=== PATIENT | female | born 1965 | race African-American/Black ===

== ENCOUNTER 2018-12-29 10:49 | Inpatient (IN) | payer OTHER ==
[2018-12-29] MEDS ORDERED: ACETAMINOPHEN 500 MG TABLET (FP) PO ONE (11:09)
[2018-12-29] MEDS ORDERED: morphine CARPU-JECT 4 MG/1 ML DISP.SYRIN IVPUSH ONE (11:13)
[2018-12-29] MEDS ORDERED: morphine SULFATE 4 MG/ML VIAL ONE ×2 (11:15→18:12)
[2018-12-29] MEDS ORDERED: ACETAMINOPHEN 325 MG TABLET (FP) ONE (11:16)
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
--- NOTE | 2018-12-29 12:57 | PDOC ---
Attending Attestation - Resident Resident Name: DrakeMartin - ED Attending Attestation I have performed the following: I have examined & evaluated the patient, The case was reviewed & discussed with the resident, I agree w/resident's findings & plan - HPI HPI: 12/29/18 12:58 53 YOF with h/o Alcohol dependence, mood disorder, PTSD presenting with left hip pain. Fell 1 week ago, ? left hip pain today after another stumble today, now unable to ambulate. Percocet for pain control normally, but has not taken recently.. sees pain specialist, due for appt visit next week.. 12/29/18 21:03 - Physicial Exam PE: 12/29/18 12:58 Agree with the resident's HPI and PE as documented in the electronic medical record. mild distress, tearful and crying in pain. no respiratory distress 2+ pulses throughout. CARTER x4, no focal neuro deficits. +left lateral hip TTP, normal symmetric extremities, no shortening. no deformities. No peripheral edema. normal color for ethnicity, WWP. 12/29/18 12:58 - Medical Decision Making 12/29/18 12:59 Vital Signs Temp Pulse Resp BP Pulse Ox 98.1 F 78 20 154/90 100 12/29/18 11:01 12/29/18 11:01 12/29/18 11:01 12/29/18 11:01 12/29/18 11:01 VS reviewed wnl DDX contusion, hematoma, hip fx, pelvic fx xray of hip and femur neg for acute pathology, normal alignment, no dislocation pelvic ct given persistent sx and left hip pain, r/o occult fx analgesia CT pelvis neg for fx or acute injuries. 12/29/18 14:17 still c/o pain. in left hip. given additional toradol, ketamine, IVF and percocet. reassess unable to ambulate yet, so pain control and reassess. however, despite meds above, unable to ambulate, unsafe for discharge. will admit obs for pain control, hip pain, PT eval and medical management. 12/29/18 21:04
[2018-12-29] MEDS ORDERED: KETAMINE HCL 500 MG/10 ML VIAL IV ONE (14:16)
[2018-12-29] MEDS ORDERED: LIDOCAINE 5% TOPICAL PATCH TP ONE (14:17)
[2018-12-29] MEDS ORDERED: KETOROLAC TROMETHAMINE 15 MG/ML VIAL IVPUSH ONE (14:17)
[2018-12-29] MEDS ORDERED: LACTATED RINGERS SOLUTION 1000 ML INFUS.BAG IV ONE (14:18)
[2018-12-29] MEDS ORDERED: LIDOCAINE 5% TOPICAL PATCH ONE (14:28)
[2018-12-29] MEDS ORDERED: KETOROLAC TROMETHAMINE 15 MG/ML VIAL ONE ×2 (14:28→18:03)
[2018-12-29] MEDS ORDERED: KETAMINE HCL 500 MG/10 ML VIAL ONE (14:29)
[2018-12-29 16:55] LABS: BASO % 0.6 % (0-2.0); EOS % 1.8 % (0-4.5); HEMATOCRIT 41.9 % (32.4-45.2); LYMPH % 47.2 % (8-40); MCH 29.4 pg (25.7-33.7); MCHC 33.3 g/dl (32.0-36.0); MEAN CELL VOLUME 88.4 fl (80-96); NEUT % 41.4 % (42.8-82.8); PLATELET COUNT 194 K/MM3 (134-434); RBC 4.74 M/mm3 (3.60-5.2); RDW 14.1 % (11.6-15.6); WHITE BLOOD COUNT 4.8 K/mm3 (4.0-10.0)
[2018-12-29 17:16] LABS: BLOOD UREA NITROGEN 15.2 mg/dL (7-18); CALCIUM 9.2 mg/dL (8.5-10.1); CREATININE 0.9 mg/dL (0.55-1.3); POTASSIUM 4.1 mmol/L (3.5-5.1)
[2018-12-29] MEDS ORDERED: oxyCODONE HCL 5 MG TABLET PO PRN (17:52)
[2018-12-29] MEDS ORDERED: KETOROLAC TROMETHAMINE 30 MG/1 ML VIAL IM PRN (17:52)
[2018-12-29] MEDS ORDERED: morphine SULFATE 4 MG/ML VIAL IVPUSH PRN (17:53)
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
[2018-12-29] MEDS: NICOTINE 7 MG/24 HOURS TOPICAL PATCH TD SCH (19:07)
[2018-12-29] MEDS: HYDROmorphone HCl 2 MG/ML VIAL IVPB PRN (20:28)
[2018-12-29] MEDS ORDERED: HYDROmorphone HCl 2 MG/ML VIAL ONE (20:35)
[2018-12-29] MEDS ORDERED: LIDOCAINE PATCH REMOVAL MC SCH (22:00)
[2018-12-30] MEDS: HYDROmorphone HCl 2 MG/ML VIAL IVPB PRN ×5 (02:00→21:22)
[2018-12-30 02:40] VITALS: BMI 36.1
[2018-12-30 08:13] LABS: BASO % 0.8 % (0-2.0); EOS % 2.1 % (0-4.5); HEMATOCRIT 40.8 % (32.4-45.2); HEMOGLOBIN 13.8 GM/dL (10.7-15.3); LYMPH % 54.9 % (8-40); MCH 29.9 pg (25.7-33.7); MCHC 33.9 g/dl (32.0-36.0); MEAN CELL VOLUME 88.1 fl (80-96); MEAN PLT VOLUME 10.7 fl (7.5-11.1); MONO % 7.5 % (3.8-10.2); NEUT % 34.7 % (42.8-82.8); PLATELET COUNT 175 K/MM3 (134-434); RBC 4.63 M/mm3 (3.60-5.2); RDW 13.9 % (11.6-15.6); WHITE BLOOD COUNT 4.4 K/mm3 (4.0-10.0)
[2018-12-30 08:16] LABS: ALBUMIN 3.3 g/dl (3.4-5.0); BILIRUBIN,TOTAL 0.4 mg/dL (0.2-1); BLOOD UREA NITROGEN 17.6 mg/dL (7-18); CREATININE 0.9 mg/dL (0.55-1.3); POTASSIUM 4.4 mmol/L (3.5-5.1); TOT PROT 6.4 g/dl (6.4-8.2)
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
[2018-12-30] MEDS: ENOXAPARIN NA (PORCINE) 40 MG/0.4 ML DISP.SYRIN SQ SCH (09:30)
[2018-12-30] MEDS ORDERED: PT OWN MED DRAWER 7, Y5N ONE ×2 (09:37→11:48)
--- NOTE | 2018-12-30 11:02 | EKG ---
Test Reason : Blood Pressure : / mmHG Vent. Rate : 071 BPM Atrial Rate : 071 BPM P-R Int : 134 ms QRS Dur : 090 ms QT Int : 416 ms P-R-T Axes : 054 058 047 degrees QTc Int : 452 ms NORMAL SINUS RHYTHM POSSIBLE LEFT ATRIAL ENLARGEMENT NONSPECIFIC T WAVE ABNORMALITY ABNORMAL ECG NO PREVIOUS ECGS AVAILABLE Confirmed by MINERVA STONER MD ([id number]) on 12/30/2018 11:02:24 AM Referred By: Confirmed By:MINERVA STONER MD
[2018-12-30] MEDS ORDERED: CELECOXIB 200 MG CAPSULE PO ONE (11:06)
--- NOTE | 2018-12-30 12:51 | CONSULT ---
Consult Consult Specialty:: orthopedics Reason for Consultation:: Left hip pain - History of Present Illness History of Present Illness: 53y/o female c/o of left hip pain which begain 2 weeks ago without any injury or trauma. She denies any history of hip pain. She states yesterday she was going to fall when she caught her fall with her arms but since then has had increased pain in the left hip and has been unable to walk or sit up due to the pain. She had x-rays and a CT scan. She denies any numbness or tingling. There are no other associated, aggravating or relieving factors. - History Source History Provided By: Patient, Medical Record Limitations to Obtaining History: No Limitations - Past Medical History ...LMP: 09/19/12 - Alcohol/Substance Use Hx Alcohol Use: No - Smoking History Smoking history: Current every day smoker Have you smoked in the past 12 months: Yes Aproximately how many cigarettes per day: 7 Home Medications - Allergies Allergies/Adverse Reactions: Allergies Allergy/AdvReac Type Severity Reaction Status Date / Time No Known Allergies Allergy Verified 12/29/18 11:07 - Home Medications Home Medications: Ambulatory Orders Oxycodone HCl/Acetaminophen [Percocet 10-325 mg Tablet -] 1 - 2 tab PO Q6H 04/12 Review of Systems - Review of Systems Constitutional: reports: No Symptoms Eyes: reports: No Symptoms HENT: reports: No Symptoms Neck: reports: No Symptoms Cardiovascular: reports: No Symptoms Respiratory: reports: No Symptoms Gastrointestinal: reports: No Symptoms Genitourinary: reports: No Symptoms Breasts: reports: No Symptoms Reported Musculoskeletal: reports: No Symptoms Integumentary: reports: No Symptoms Neurological: reports: No Symptoms Endocrine: reports: No Symptoms Hematology/Lymphatic: reports: No Symptoms Psychiatric: reports: No Symptoms Physical Exam Vital Signs: Vital Signs Temperature 98.3 F 12/30/18 06:27 Pulse Rate 70 12/30/18 06:27 Respiratory Rate 20 12/30/18 06:27 Blood Pressure 130/89 12/30/18 06:27 O2 Sat by Pulse Oximetry (%) 99 12/29/18 23:54 Constitutional: Yes: Well Nourished, No Distress, Calm Musculoskeletal: Yes: Other (Left Hip: No open wounds. She is very tender laterally along the greater trochanter. No other areas of tenderness. Pain with motion of the hip. Compartments soft. No calf tenderness. NVID. 5/5 strenght EHL , FHL, TA, G/S.) Labs: CBC, BMP 12/30/18 06:17 12/30/18 06:17 Imaging - Results X-ray: Report Reviewed, Image Reviewed Cat Scan: Report Reviewed, Image Reviewed (There is a possible fracture line seen along the acetabulum on the coronal views. hard to identify on the axial and saggital views. possible artifact.) Assessment/Plan #1 Left hip pain, Greater trocanteric bursitis r/o occult fracture -Recommend MRI to rule out occult fracture -Pain control -NWB until MRI complete. -DVT prophylaxis
[2018-12-30] MEDS ORDERED: LORazepam 1 MG TABLET PO ONE (13:07)
[2018-12-30] MEDS: NICOTINE 7 MG/24 HOURS TOPICAL PATCH TD SCH (13:24)
--- NOTE | 2018-12-30 16:18 | PN ---
Physical Exam: SUBJECTIVE: Patient seen and examined at the bedside, there were no acute events overnight. The patient is tearful and in pain this morning. OBJECTIVE: Vital Signs Period Temp Pulse Resp BP Sys/Nevarez Pulse Ox Last 24 Hr 97.8 F-98.9 F 58-83 16-20 109-153/66-89 97-100 GENERAL: The patient is awake, alert, and fully oriented, in mild distress. HEAD: Normal with no signs of trauma. EYES: PERRL, extraocular movements intact, sclera anicteric, conjunctiva clear. No ptosis. ENT: Ears normal, nares patent, oropharynx clear without exudates, moist mucous membranes. NECK: Trachea midline, full range of motion, supple. LUNGS: Breath sounds equal, clear to auscultation bilaterally, no wheezes, no crackles, no accessory muscle use. HEART: Regular rate and rhythm, S1, S2 without murmur, rub or gallop. ABDOMEN: Soft, nontender, nondistended, normoactive bowel sounds, no guarding, no rebound. EXTREMITIES: 2+ pulses, warm, well-perfused, no edema. L hip tender to even light touch. NEUROLOGICAL: Cranial nerves II through XII grossly intact. Normal speech, gait not observed. PSYCH: Normal mood, normal affect. SKIN: Warm, dry, normal turgor, no rashes or lesions noted Laboratory Results - last 24 hr 12/29/18 12/29/18 12/30/18 16:42 16:42 06:17 WBC 4.8 4.4 RBC 4.74 4.63 Hgb 14.0 13.8 Hct 41.9 40.8 MCV 88.4 88.1 MCH 29.4 29.9 MCHC 33.3 33.9 RDW 14.1 13.9 Plt Count 194 175 MPV 10.0 10.7 Absolute Neuts (auto) 2.0 1.5 Neutrophils % 41.4 L 34.7 L Lymphocytes % 47.2 H 54.9 H Monocytes % 9.0 7.5 Eosinophils % 1.8 2.1 Basophils % 0.6 0.8 Nucleated RBC % 0 0 Sodium 141 Potassium 4.1 Chloride 108 H Carbon Dioxide 25 Anion Gap 8 BUN 15.2 Creatinine 0.9 Est GFR (CKD-EPI)AfAm 84.61 Est GFR (CKD-EPI)NonAf 73.00 Random Glucose 118 H Calcium 9.2 Total Bilirubin AST ALT Alkaline Phosphatase Total Protein Albumin 12/30/18 06:17 WBC RBC Hgb Hct MCV MCH MCHC RDW Plt Count MPV Absolute Neuts (auto) Neutrophils % Lymphocytes % Monocytes % Eosinophils % Basophils % Nucleated RBC % Sodium 142 Potassium 4.4 Chloride 108 H Carbon Dioxide 27 Anion Gap 7 L BUN 17.6 Creatinine 0.9 Est GFR (CKD-EPI)AfAm 84.61 Est GFR (CKD-EPI)NonAf 73.00 Random Glucose 97 Calcium 9.0 Total Bilirubin 0.4 AST 26 ALT 33 Alkaline Phosphatase 133 H Total Protein 6.4 Albumin 3.3 L Active Medications Generic Name Dose Route Start Last Admin Trade Name Freq PRN Reason Stop Dose Admin Enoxaparin Sodium 40 mg 12/30/18 10:00 12/30/18 09:30 Lovenox - SQ 40 mg DAILY FRANSISCA Administration Hydromorphone HCl 1 mg 12/29/18 18:17 12/30/18 09:29 Dilaudid Vial - IVPB 1 mg Q4H PRN Administration PAIN LEVEL 7 - 10 Ketorolac Tromethamine 30 mg 12/29/18 17:52 Toradol Injection - IM 01/03/19 17:51 Q6H PRN PAIN LEVEL 4 - 6 Lorazepam 2 mg 12/30/18 13:07 Ativan - PO 12/30/18 13:08 ONCE ONE Nicotine 7 mg 12/29/18 18:00 12/30/18 13:24 Nicoderm Patch - TD 7 mg DAILY FRANSISCA Administration Oxycodone HCl 5 mg 12/29/18 17:52 Roxicodone - PO Q6H PRN PAIN LEVEL 1 - 3 ASSESSMENT/PLAN: Patient is a 53 y/o female with a history of htn ( not on medication) who presents with left hip pain. #Left hip pain- Greater trocanteric bursitis vs occult fracture - some arthritic changes, unknown source, no fractures noted on CT or Xray - pain medications ordered as per pain scale, monitor for malingering - Ortho consulted, Dr. Villa following, appreciate recommendations -MRI to rule out occult fracture -Pain control -Non-weight bearing until MRI complete. #DVT ppx - Lovenox 40 sq daily #nicotine dependence - nicotine patch - discuss management for quitting as an outpatient FEN - sodium diet Dispo: monitor pain clinically Visit type - Emergency Visit Emergency Visit: Yes ED Registration Date: 12/29/18 Care time: The patient presented to the Emergency Department on the above date and was hospitalized for further evaluation of their emergent condition. - New Patient This patient is new to me today: Yes Date on this admission: 12/30/18 - Critical Care Critical Care patient: No - Discharge Referral Referred to [facility] Med [facility] No ATTENDING PHYSICIAN STATEMENT I saw and evaluated the patient. I reviewed the resident's note and discussed the case with the resident. I agree with the resident's findings and plan as documented. SUBJECTIVE: OBJECTIVE: ASSESSMENT AND PLAN:
[2018-12-30] MEDS ORDERED: MELATONIN 5 MG TABLETS PO ONE (21:48)
[2018-12-31] MEDS: HYDROmorphone HCl 2 MG/ML VIAL IVPB PRN ×5 (01:48→21:24)
[2018-12-31 07:00] LABS: HEMATOCRIT 40.2 % (32.4-45.2); HEMOGLOBIN 13.5 GM/dL (10.7-15.3); MCH 29.6 pg (25.7-33.7); MCHC 33.5 g/dl (32.0-36.0); MEAN CELL VOLUME 88.4 fl (80-96); MEAN PLT VOLUME 10.1 fl (7.5-11.1); PLATELET COUNT 160 K/MM3 (134-434); RBC 4.55 M/mm3 (3.60-5.2); WHITE BLOOD COUNT 4.1 K/mm3 (4.0-10.0)
[2018-12-31 07:27] LABS: ALBUMIN 3.1 g/dl (3.4-5.0); BILIRUBIN,TOTAL 0.4 mg/dL (0.2-1); BLOOD UREA NITROGEN 15.1 mg/dL (7-18); CALCIUM 8.7 mg/dL (8.5-10.1); CREATININE 0.7 mg/dL (0.55-1.3); POTASSIUM 4.3 mmol/L (3.5-5.1); TOT PROT 6.2 g/dl (6.4-8.2)
[2018-12-31] MEDS ORDERED: PT OWN MED DRAWER 7, Y5N ONE ×2 (09:10→14:10)
[2018-12-31] MEDS: NICOTINE 7 MG/24 HOURS TOPICAL PATCH TD SCH (09:16)
[2018-12-31] MEDS: ENOXAPARIN NA (PORCINE) 40 MG/0.4 ML DISP.SYRIN SQ SCH (09:16)
[2018-12-31] MEDS ORDERED: CELECOXIB 200 MG CAPSULE PO ONE (13:03)
[2018-12-31] MEDS: predniSONE 20 MG TABLET (UD) PO SCH (14:11)
--- NOTE | 2018-12-31 15:16 | PN ---
Progress Note (short form) - Note Progress Note: Pt lying in bed notes pain much better today still with pain along left flank/thigh but less than before notes feeling of numbness on dorsum of foot PE afvss LLE hip nontender able to log roll hip no pain flex to 100 no pain no pain with rotation + SLR calves soft nontender XR/CT reviewed no evidence of fracture of hip hip shows mild djd l spine shows moderate degenerative changes A: LLE pain P: pain today most suggestive of sciatica can cancel hip MRI, hip joint exam much improved today and no hx of trauma start PT, wbat can consider MRI of hip or l-spine if not able to successfully weight bear with PT can follow up with me for hip or pain management for her back as outpatient
--- NOTE | 2018-12-31 16:10 | PN ---
Physical Exam: SUBJECTIVE: Patient seen and examined at the bedside, there were no acute events overnight. Patient reports that she is feeling better today but still in pain. OBJECTIVE: Vital Signs Period Temp Pulse Resp BP Sys/Nevarez Pulse Ox Last 24 Hr 97.8 F-98.5 F 62-78 18-20 117-156/75-94 99 GENERAL: The patient is awake, alert, and fully oriented, in mild distress however notes pain is improving. HEAD: Normal with no signs of trauma. EYES: PERRL, extraocular movements intact, sclera anicteric, conjunctiva clear. No ptosis. ENT: Ears normal, nares patent, oropharynx clear without exudates, moist mucous membranes. NECK: Trachea midline, full range of motion, supple. LUNGS: Breath sounds equal, clear to auscultation bilaterally, no wheezes, no crackles, no accessory muscle use. HEART: Regular rate and rhythm, S1, S2 without murmur, rub or gallop. ABDOMEN: Soft, nontender, nondistended, normoactive bowel sounds, no guarding, no rebound. EXTREMITIES: 2+ pulses, warm, well-perfused, no edema. 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 NEUROLOGICAL: Cranial nerves II through XII grossly intact. Normal speech, gait not observed. PSYCH: Normal mood, normal affect. SKIN: Warm, dry, normal turgor, no rashes or lesions noted Laboratory Results - last 24 hr 12/31/18 12/31/18 06:25 06:25 WBC 4.1 RBC 4.55 Hgb 13.5 Hct 40.2 MCV 88.4 MCH 29.6 MCHC 33.5 RDW 14.0 Plt Count 160 MPV 10.1 Sodium 141 Potassium 4.3 Chloride 111 H Carbon Dioxide 24 Anion Gap 6 L BUN 15.1 Creatinine 0.7 Est GFR (CKD-EPI)AfAm 114.65 Est GFR (CKD-EPI)NonAf 98.92 Random Glucose 97 Calcium 8.7 Total Bilirubin 0.4 AST 19 ALT 28 Alkaline Phosphatase 125 H Total Protein 6.2 L Albumin 3.1 L Active Medications Generic Name Dose Route Start Last Admin Trade Name Freq PRN Reason Stop Dose Admin Enoxaparin Sodium 40 mg 12/30/18 10:00 12/31/18 09:16 Lovenox - SQ 40 mg DAILY FRANSISCA Administration Hydromorphone HCl 1 mg 12/29/18 18:17 12/31/18 09:15 Dilaudid Vial - IVPB 1 mg Q4H PRN Administration PAIN LEVEL 7 - 10 Ketorolac Tromethamine 30 mg 12/29/18 17:52 Toradol Injection - IM 01/03/19 17:51 Q6H PRN PAIN LEVEL 4 - 6 Lorazepam 2 mg 12/30/18 13:07 Ativan - PO 12/30/18 13:08 ONCE ONE Nicotine 7 mg 12/29/18 18:00 12/31/18 09:16 Nicoderm Patch - TD 7 mg DAILY FRANSISCA Administration Oxycodone HCl 5 mg 12/29/18 17:52 Roxicodone - PO Q6H PRN PAIN LEVEL 1 - 3 Prednisone 40 mg 12/31/18 13:15 12/31/18 14:11 Deltasone - PO 01/04/19 13:15 40 mg DAILY FRANSISCA Administration ASSESSMENT/PLAN: Patient is a 53 y/o female with a history of htn ( not on medication) who presents with left hip pain. #Left hip pain- Greater trocanteric bursitis vs occult fracture - some arthritic changes (hip shows mild degenerative joint disease), unknown source, no fractures noted on CT or Xray - pain medications ordered as per pain scale, monitor for malingering - Ortho consulted, Dr. Moya saw patient today, appreciate recommendations -Ct without evidence of fracture, pain may be 2/2 sciatica - pain improved with medical management, will cancel MRI as patient is able to weight bear at this time - can follow up with Dr. Moya as an outpatient for further workup/ management. -Pain control #DVT ppx - Lovenox 40 sq daily #nicotine dependence - nicotine patch - discuss management for quitting as an outpatient FEN - sodium diet Dispo: monitor pain clinically Visit type - Emergency Visit Emergency Visit: Yes ED Registration Date: 12/29/18 Care time: The patient presented to the Emergency Department on the above date and was hospitalized for further evaluation of their emergent condition. - New Patient This patient is new to me today: No - Critical Care Critical Care patient: No - Discharge Referral Referred to [facility] Med [facility]C.: No ATTENDING PHYSICIAN STATEMENT I saw and evaluated the patient. I reviewed the resident's note and discussed the case with the resident. I agree with the resident's findings and plan as documented. SUBJECTIVE: OBJECTIVE: ASSESSMENT AND PLAN:
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
[2018-12-31] MEDS ORDERED: MELATONIN 5 MG TABLETS PO ONE (20:56)
[2019-01-01] MEDS: HYDROmorphone HCl 2 MG/ML VIAL IVPB PRN ×3 (01:33→11:11)
[2019-01-01 08:16] LABS: HEMATOCRIT 43.6 % (32.4-45.2); HEMOGLOBIN 14.6 GM/dL (10.7-15.3); MCH 29.5 pg (25.7-33.7); MCHC 33.5 g/dl (32.0-36.0); MEAN CELL VOLUME 87.9 fl (80-96); MEAN PLT VOLUME 11.1 fl (7.5-11.1); PLATELET COUNT 193 K/MM3 (134-434); RBC 4.96 M/mm3 (3.60-5.2); RDW 13.9 % (11.6-15.6); WHITE BLOOD COUNT 7.7 K/mm3 (4.0-10.0)
[2019-01-01 08:36] LABS: BLOOD UREA NITROGEN 14.1 mg/dL (7-18); CALCIUM 9.3 mg/dL (8.5-10.1); CREATININE 0.7 mg/dL (0.55-1.3); POTASSIUM 4.3 mmol/L (3.5-5.1)
[2019-01-01] MEDS ORDERED: PT OWN MED DRAWER 7, Y5N ONE (09:20)
[2019-01-01] MEDS: NICOTINE 7 MG/24 HOURS TOPICAL PATCH TD SCH (09:23)
[2019-01-01] MEDS: predniSONE 20 MG TABLET (UD) PO SCH (09:23)
[2019-01-01] MEDS: ENOXAPARIN NA (PORCINE) 40 MG/0.4 ML DISP.SYRIN SQ SCH (09:23)
--- NOTE | 2019-01-01 11:43 | DS ---
Physical Exam: SUBJECTIVE: Patient seen and examined at the bedside, there were no acute events overnight. Patient states she is feeling better and wants to go home today. OBJECTIVE: Vital Signs Period Temp Pulse Resp BP Sys/Neavrez Pulse Ox Last 24 Hr 97.8 F-98.9 F 73-78 20-20 143-159/75-92 94 PHYSICAL EXAM GENERAL: The patient is awake, alert, and fully oriented, in no distress, states pain is still present but much improved HEAD: Normal with no signs of trauma. EYES: PERRL, extraocular movements intact, sclera anicteric, conjunctiva clear. No ptosis. ENT: Ears normal, nares patent, oropharynx clear without exudates, moist mucous membranes. NECK: Trachea midline, full range of motion, supple. LUNGS: Breath sounds equal, clear to auscultation bilaterally, no wheezes, no crackles, no accessory muscle use. HEART: Regular rate and rhythm, S1, S2 without murmur, rub or gallop. ABDOMEN: Soft, nontender, nondistended, normoactive bowel sounds, no guarding, no rebound. EXTREMITIES: 2+ pulses, warm, well-perfused, no edema. L hip and thigh still worker helper even to light touch. NEUROLOGICAL: Cranial nerves II through XII grossly intact. Normal speech, gait not observed. PSYCH: Normal mood, normal affect. SKIN: Warm, dry, normal turgor, no rashes or lesions noted LABS Laboratory Results - last 24 hr 01/01/19 01/01/19 06:55 06:55 WBC 7.7 RBC 4.96 Hgb 14.6 Hct 43.6 MCV 87.9 MCH 29.5 MCHC 33.5 RDW 13.9 Plt Count 193 D MPV 11.1 Sodium 142 Potassium 4.3 Chloride 108 H Carbon Dioxide 26 Anion Gap 7 L BUN 14.1 Creatinine 0.7 Est GFR (CKD-EPI)AfAm 114.65 Est GFR (CKD-EPI)NonAf 98.92 Random Glucose 99 Calcium 9[address]: Multilevel severe bilateral facet hypertrophy, as described above that is most prominent at L4-L5 level on the left with large productive bone hypertrophy. Mild left lateral disc bulge at L2-L3 reaching and probably slightly impinging left L2 nerve root. L3-L4 mild left lateral disc bulge reaching and probably slightly impinging left L3 nerve root. Mild degenerative central spinal canal stenosis at L3-L4 and L4-L5 level. HOSPITAL COURSE: Date of Admission:12/29/18 Patient is a 53 y/o female with a history of htn ( not on medication) who presents with left hip pain. Patient was admitted to med-surg for workup of greater trocanteric bursitis vs occult fracture. Pt had LLE/hip Xray and CT scans which showed mild degenerative joint disease and no evidence of fractures. Patient also had a lumbar spine CT which showed mild severe bilateral facet hypertrophy with disc bulge and nerve impingement at L2 and L3. Pain was managed with toradol, oxycodone, and dilauded. The patient was also started on prednisone to reduce inflammation. The patient reported that after the addition of the steroids her pain began to improve. She was able to stand and ambulate on her own. The patient was also seen and assessed by orthopedc surgery while hospitalized who agreed that there was no evidence of fracture and that her pain was most likely 2/2 sciatica. The patient was discharged after 3 days of hospitalization with instructions to follow up with her primary care doctor and with the orthopedic surgeon. She was given a 6 day prednisone taper and also referred for outpatient physical therapy. We also counseled the patient on nicotine replacement and smoking cessation in addition to the benefits of weight loss for helping reduce her pain. Date of Discharge: 01/01/19 Minutes to complete discharge: 40 Discharge Summary Problems reviewed: Yes Reason For Visit: INTRACTABLE PAIN Condition: Improved - Instructions Diet, Activity, Other Instructions: You were in the hospital because you had left hip pain. While you were here we did and xray and CT scan which did not show any fractures. You were also seen by physical therapy and an orthopedic surgeon. Your pain was controlled with pain medicines and you were discharged home. Weight loss will help your back pain. You should continue taking any home medications as prescribed with the following changes - ADD: prednisone for another 6 days, the dose will taper Day 1: 40=(4x10mg)-->01/02/2019 Day 2: 30=(3x10mg)--> 01/03/2019 Day 3: 30=(3x10mg)--> 01/04/2019 Day 4: 20=(2x10mg) --> 01/05/2019 Day 5: 20=(2x10mg --> 01/06/2019 Day 6: 10 --> 01/07/2019 Please follow up with the following doctors within 1 week of discharge from the hospital - Dr. Oneill, your primary care doctor. - Dr. Moya, the orthopedic surgeon for further instructions on outpatient physical therapy. We will refer you to a physical therapy center "[facility]" at [address], [address]. If you have worsening symptoms of leg pain or inability to walk, please return to the Emergency Department immediately. Referrals: Chris Moya MD [Staff Physician] - 1 Week Clinton Oneill MD [Non Staff, Medical] - Disposition: HOME - Home Medications Comprehensive Discharge Medication List: Ambulatory Orders Oxycodone HCl/Acetaminophen [Percocet 10-325 mg Tablet] 1 - 2 tab PO Q6H Miscellaneous Medical Supply [Outpatient Order] 1 each ASDIR #1 misc predniSONE [Deltasone -] See Taper PO ASDIR #15 tab 01/01/19 This patient is new to me today: No Emergency Visit: Yes ED Registration Date: 12/29/18 Care time: The patient presented to the Emergency Department on the above date and was hospitalized for further evaluation of their emergent condition. Critical Care patient: No - Discharge Referral Referred to [facility] Med P[facility]C.: No ATTENDING PHYSICIAN STATEMENT I saw and evaluated the patient. I reviewed the resident's note and discussed the case with the resident. I agree with the resident's findings and plan as documented. SUBJECTIVE: OBJECTIVE: ASSESSMENT AND PLAN:
[2019-01-01 12:06] VITALS: BP 150/78; PULSE 74; TEMP 98.4
== END 2019-01-01 12:45 | disposition home or self-care (01) | DRG 347 ==
LOC: JER 10:49 → JERBED 16:27 → J8W 12-30 01:12
PROVIDERS: ADMIT Internal Medicine; ATTEND Internal Medicine
DX: M51.36 Other intervertebral disc degeneration, lumbar region (principal); M70.62 Trochanteric bursitis, left hip; F10.20 Alcohol dependence, uncomplicated; F39 Unspecified mood [affective] disorder; F43.10 Post-traumatic stress disorder, unspecified; I10 Essential (primary) hypertension; M54.32 Sciatica, left side; F17.210 Nicotine dependence, cigarettes, uncomplicated
CPT/HCPCS: 36415; 72131-TC; 72192-TC; 72220-TC-FY; 73523-TC-FY; 73552-TC-LT-FY; 80048; 80053; 85025; 85027; 93005; 93010; 97116-GP; 97161-GP; 99285-25